=== PATIENT | female | born 1940 | race Two or more races ===

== ENCOUNTER 2021-01-24 10:58 | Inpatient (IN) | payer MEDICARE, OTHER ==
[~2021-01-24] VITALS: Ht 152.4 cm; Wt 69.5 kg
[2021-01-24 12:10] LABS: BASOPHILS % 0.7 % (0.0-2.0); EOSINOPHILS % 2.5 % (0.0-5.0); HEMATOCRIT. 43.1 % (36.0-48.0); HEMOGLOBIN. 14.5 g/dL (12.0-16.0); LYMPHOCYTES % 15.1 % (20.0-50.0); MEAN CORPUSCULAR HEMOGLOBIN 28.5 pg (28.0-32.0); MEAN PLATELET VOLUME 7.7 fl (7.4-10.4); MONOCYTES % 9.3 % (2.0-8.0); NEUTROPHILS % 72.4 % (40.0-76.0); PLATELET 328 x1000/uL (130-400); RED BLOOD CELL COUNT 5.07 mill/uL (4.2-5.4); RED CELL DISTRIBUTION WIDTH 14.1 % (11.6-14.6)
[2021-01-24] MEDS ORDERED: DEXTROSE 50% WATER 50ML SYRINGE IV PRN (12:15)
[2021-01-24] MEDS ORDERED: ACETAMINOPHEN 325MG TABLET PO PRN (12:15)
[2021-01-24 12:16] LABS: CHLORIDE 106 mEq/L (98-107)
[2021-01-24 12:22] LABS: INR 1.1; PARTIAL THROMBOPLASTIN TIME 25.6 sec (23.4-31.0); PROTHROMBIN TIME 12.2 sec (9.6-11.0)
[2021-01-24] MEDS: BLOOD SUGAR DIAGNOSTIC STRIP TEST SCH ×3 (12:27→22:03)
[2021-01-24] MEDS: INSULIN LISPRO 100 UNITS/ML SUBCUT SCH ×5 (12:28→22:11)
[2021-01-24] MEDS ORDERED: ASPIRIN 81MG TABLET PO SCH (13:00)
[2021-01-24] MEDS ORDERED: ENOXAPARIN 80MG/0.8ML SYR SUBCUT NR (13:06)
[2021-01-24] MEDS ORDERED: FUROSEMIDE 20MG/2ML VIAL IVP SCH (13:07)
[2021-01-24] MEDS ORDERED: POTASSIUM CHLORIDE 20MEQ TABLET SR PO ONE (13:15)
[2021-01-24] MEDS ORDERED: CLONIDINE 0.1MG TABLET PO PRN (13:15)
[2021-01-24] MEDS: ASPIRIN 81MG EC TABLET PO SCH (13:18)
[2021-01-24] MEDS ORDERED: DILTIAZEM HCL 120MG CAPSULE CD 24HR PO SCH (14:00)
[2021-01-24] MEDS: NITROGLYCERIN OINT 1GM/INCH UDPKT TD SCH (14:16)
[2021-01-24] MEDS: OMEPRAZOLE 20MG CAPSULE EXTENDED RELEASE PO SCH (14:28)
[2021-01-24] MEDS ORDERED: LORAZEPAM 2MG/ML CPJ IV NR (15:15)
[2021-01-24] MEDS ORDERED: LORAZEPAM 0.5MG TABLET PO PRN (15:15)
[2021-01-24] MEDS ORDERED: HYDRALAZINE 20MG/ML VIAL IV PRN (17:45)
[2021-01-24] MEDS ORDERED: INSULIN GLARGINE UD 100 UNITS/ML SYR SUBCUT SCH (22:00)
[2021-01-24] MEDS: METOPROLOL TARTRATE 25MG TABLET PO SCH (22:04)
[2021-01-24 23:14] VITALS: BP 126/83
[2021-01-24 23:30] VITALS: BP 126/83
[2021-01-25] VITALS (12 sets, daily range): BP systolic 104–145; BP diastolic 47–86
[2021-01-25] MEDS: ATORVASTATIN CALCIUM 40MG TABLET PO SCH ×2 (01:07→22:40)
[2021-01-25] MEDS: NITROGLYCERIN OINT 1GM/INCH UDPKT TD SCH ×4 (01:08→22:40)
[2021-01-25] MEDS: OMEPRAZOLE 20MG CAPSULE EXTENDED RELEASE PO SCH (06:15)
[2021-01-25] MEDS: BLOOD SUGAR DIAGNOSTIC STRIP TEST SCH ×4 (06:15→21:00)
[2021-01-25] MEDS: INSULIN LISPRO 100 UNITS/ML SUBCUT SCH ×7 (06:16→22:42)
[2021-01-25 06:46] LABS: BASOPHILS % 0.4 % (0.0-2.0); EOSINOPHILS % 1.5 % (0.0-5.0); LYMPHOCYTES % 11.4 % (20.0-50.0); MEAN CORPUSCULAR HEMOGLOBIN 29.4 pg (28.0-32.0); MEAN CORPUSCULAR VOLUME 85.6 fL (81.0-99.0); MEAN PLATELET VOLUME 8.2 fl (7.4-10.4); NEUTROPHILS % 77.7 % (40.0-76.0); PLATELET 262 x1000/uL (130-400); RED BLOOD CELL COUNT 4.09 mill/uL (4.2-5.4); RED CELL DISTRIBUTION WIDTH 14.1 % (11.6-14.6)
[2021-01-25] MEDS ORDERED: NITROGLYCERIN 50MCG/ML 10ML VIAL (CATH LAB) IV ONE (08:12)
[2021-01-25] MEDS ORDERED: NICARDIPINE 100MCG/ML 10ML VIAL (CATH LAB) IV ONE (08:12)
[2021-01-25] MEDS ORDERED: HEPARIN SODIUM 1,000 UNIT/1ML VIAL IV ONE (08:12)
[2021-01-25] MEDS: METOPROLOL TARTRATE 25MG TABLET PO SCH ×3 (09:00→22:40)
[2021-01-25] MEDS: ASPIRIN 81MG EC TABLET PO SCH ×2 (09:00→09:21)
[2021-01-25] MEDS ORDERED: ASPIRIN/SOD BICARB/CITRIC ACID 324MG TAB EFF ONE (10:32)
[2021-01-25] MEDS ORDERED: LIDOCAINE HCL 1% 10 MG/ML 10ML VIAL ONE (10:37)
[2021-01-25] MEDS ORDERED: FENTANYL CITRATE/PF 50MCG/ML 2ML VIAL ONE (10:37)
[2021-01-25] MEDS ORDERED: HEPARIN 1000 UNITS/ML 10ML ONE (10:37)
[2021-01-25] MEDS ORDERED: IODIXANOL 320MG/ML 100 ML BOTTLE IV ONE (10:38)
[2021-01-25] MEDS ORDERED: MIDAZOLAM HCL 2 MG/2 ML VIAL ONE (10:38)
[2021-01-25] MEDS ORDERED: ATROPINE SULFATE 1MG/10ML SYR IV PRN (11:15)
[2021-01-25] MEDS ORDERED: ONDANSETRON HCL 4MG/2ML INJ IV PRN (11:15)
[2021-01-25] MEDS ORDERED: MORPHINE SULFATE 2 MG/ML CPJ (NOT FOR IM USE) IV PRN (11:15)
[2021-01-25] MEDS ORDERED: ACETAMINOPHEN 325MG TABLET PO PRN (11:15)
[2021-01-25] MEDS ORDERED: NALOXONE HCL 0.4MG/ML VIAL IV PRN (11:30)
[2021-01-25] MEDS ORDERED: SODIUM CHLORIDE 0.45% 1,000 ML IV NR (11:30)
[2021-01-25] MEDS ORDERED: INSULIN GLARGINE UD 100 UNITS/ML SYR SUBCUT SCH (23:00)
[2021-01-26] VITALS (8 sets, daily range): BP systolic 112–148; BP diastolic 66–92
[2021-01-26] MEDS: OMEPRAZOLE 20MG CAPSULE EXTENDED RELEASE PO SCH (06:10)
[2021-01-26] MEDS: NITROGLYCERIN OINT 1GM/INCH UDPKT TD SCH (06:11)
[2021-01-26 07:09] LABS: BASOPHILS % 0.6 % (0.0-2.0); EOSINOPHILS % 3.1 % (0.0-5.0); HEMATOCRIT. 36.7 % (36.0-48.0); HEMOGLOBIN. 12.6 g/dL (12.0-16.0); LYMPHOCYTES % 16.8 % (20.0-50.0); MEAN CORPUSCULAR HEMOGLOBIN 29.3 pg (28.0-32.0); MEAN CORPUSCULAR VOLUME 85.5 fL (81.0-99.0); MEAN PLATELET VOLUME 8.3 fl (7.4-10.4); MONOCYTES % 10.5 % (2.0-8.0); PLATELET 267 x1000/uL (130-400); RED BLOOD CELL COUNT 4.29 mill/uL (4.2-5.4)
[2021-01-26] MEDS: BLOOD SUGAR DIAGNOSTIC STRIP TEST SCH ×2 (07:24→12:32)
[2021-01-26] MEDS: INSULIN LISPRO 100 UNITS/ML SUBCUT SCH ×2 (07:29→07:30)
[2021-01-26] MEDS ORDERED: IPRATROPIUM/ALBUTEROL 0.5-3(2.5)MG/3ML NEB HHN PRN (08:00)
[2021-01-26] MEDS: ASPIRIN 81MG EC TABLET PO SCH (10:06)
[2021-01-26] MEDS: METOPROLOL TARTRATE 25MG TABLET PO SCH (10:07)
[2021-01-27] MEDS ORDERED: FAMOTIDINE 20MG TABLET PO SCH (06:50)
== END 2021-01-26 11:55 | disposition home or self-care (01) | DRG 287 ==
LOC: ER 10:58 → 3WST 12:03 → EDBEDREQTM 12:11 → EDBEDREQ 12:11 → ENRESERV 20:39
PROVIDERS: ADMIT Internal Medicine; ATTEND Internal Medicine
PROC: 4A023N7 Measurement of Cardiac Sampling and Pressure, Left Heart, Percutaneous Approach (ICD-10-PCS; principal; 2021-01-25)
PROC: B2111ZZ Fluoroscopy of Multiple Coronary Arteries using Low Osmolar Contrast (ICD-10-PCS; 2021-01-25)
DX: I25.110 Atherosclerotic heart disease of native coronary artery with unstable angina pectoris (principal); I24.9 Acute ischemic heart disease, unspecified; E11.9 Type 2 diabetes mellitus without complications; K21.9 Gastro-esophageal reflux disease without esophagitis; I10 Essential (primary) hypertension; E78.5 Hyperlipidemia, unspecified; F17.200 Nicotine dependence, unspecified, uncomplicated; Z20.822 Contact with and (suspected) exposure to COVID-19; J44.9 Chronic obstructive pulmonary disease, unspecified
CPT/HCPCS: 36415; 71045; 80048; 80053; 82962; 83036; 83735; 83880; 84484; 85025; 86850; 86900; 87426; 93005; 93306; 93458; 99285; C1769; C1887; C1893; J1644; J1650; J1815; J1940; J2250; J3010; J3490; Q9967